=== PATIENT | female | born 1990 | race Two or more races ===

== ENCOUNTER 2019-01-09 10:46 | Emergency (ER) | payer OTHER ==
[~2019-01-09] VITALS: Ht 170.2 cm; Wt 90.7 kg
[2019-01-09] MEDS ORDERED: PREDNISONE 10 MG (11:15)
[2019-01-09] MEDS ORDERED: RANITIDINE HCL300 MG (11:16)
[2019-01-09] MEDS ORDERED: BANOPHEN25 MG (11:16)
== END 2019-01-09 14:48 | disposition home or self-care (01) ==
LOC: ER 10:46
DX: T78.49XA Other allergy, initial encounter (principal); R21 Rash and other nonspecific skin eruption